=== PATIENT | female | born 1995 | race Caucasian/White ===

== ENCOUNTER → 2020-10-04 | Outpatient (CLI) | payer OTHER ==
[~2020-10-04] MED LIST: PROHANCE 279.3MG/ML 15ML VIAL As Ordered ONE
--- NOTE | 2020-10-04 19:05 | REPVR ---
PROCEDURE INFORMATION: Exam: MR Lumbar Spine Without and With Contrast. Exam date and time: 10/04/2020 6:19 PM Age: 25 years old Clinical indication: Pain; Lumbago with sciatica; Right; Additional info: Lumbago with sciatica, right side TECHNIQUE: Imaging protocol: Multiplanar magnetic resonance images of the lumbar spine without and with intravenous contrast. Contrast material: PROHANCE; Contrast volume: 12 ml; Contrast route: INTRAVENOUS (IV); COMPARISON: No relevant prior studies available. FINDINGS: Vertebrae: A transitional vertebral body is identified at the lumbosacral junction. The lowest full sized lumbar segment is labeled this L5 for the purposes of this dictation. The lumbar vertebral bodies are normal in height, without abnormal subluxation. Spinal cord: The distal end of the conus medullaris ends at L1, normal in position. Multilevel findings: Degenerative disc disease is noted within the lower lumbar and lower thoracic spine, with disc bulge/osteophyte complexes. T12-L1: Minimal disc bulging visualized at T11-12 and T12-L1, without significant narrowing of the thecal sac or neural foramina. L1-L2: There is no significant narrowing of the thecal sac or neural foramina. No posterior disc herniation. L2-L3: Mild hypertrophy of the ligamentum flavum. No significant narrowing of the thecal sac or neural foramina. L3-L4: Bilateral facet arthropathy with hypertrophy of the ligamentum flavum. No significant narrowing of the thecal sac or neural foramina. L4-L5: Bilateral facet arthropathy with hypertrophy of the ligamentum flavum. There is a degenerative decrease in the T2 signal intensity of the disc. A broad-based disc protrusion is identified, with mild narrowing of the thecal sac. This disc protrusion is slightly more prominent on the right side. An annular tear is identified of the posterior aspect of the disc. No significant neural foraminal narrowing bilaterally. L5-S1: There is a decrease in disc height. There is a decrease in the T2 signal intensity of the disc. Disc bulging visualized, with an annular tear of the posterior aspect of the disc. The thecal sac mildly tapers at this level, without thecal sac compression. No significant neural foraminal narrowing bilaterally. Bilateral facet arthropathy. Other bones/joints: No pathological enhancement within the lumbar spinal canal. Soft tissues: No significant paraspinal swelling. IMPRESSION: 1. A transitional vertebral body is identified at the lumbosacral junction. The lowest full sized lumbar segment is labeled this L5 for the purposes of this dictation. 2. Degenerative changes are noted within the lower lumbar and lower thoracic spine, as described above. 3. At L4-L5, a broad-based disc protrusion is identified, with mild narrowing of the thecal sac. Electronically signed by: Deni Kang On 10/04/2020 19:04:28 PM
== END ==
LOC: M RAD 17:06
PROVIDERS: ATTEND Student in an Organized Health Care Education/Training Program
DX: M54.41 Lumbago with sciatica, right side (principal); M51.26 Other intervertebral disc displacement, lumbar region; M51.36 Other intervertebral disc degeneration, lumbar region
CPT/HCPCS: 72158; A9576